=== PATIENT | female | born 1995 | race Caucasian/White ===

== ENCOUNTER 2016-11-02 16:24 | Emergency (ER) | payer BC ==
[2016-11-02 16:35] VITALS: BP 100/64
--- NOTE | 2016-11-02 16:54 | UC ---
Skin Complaint HPI - HPI Summary HPI Summary: pt presents with request for medication refill. Pt has history of dermatitis that "flares up every once in a while". Pt reports that she had a "flare up" a few days ago and took three days worth of oral doxycycline and skin complaint resolved. Pt requested medication refill from PCP and was told that they would not refill it because it has been 6 months since last visit. - History of Current Complaint Chief Complaint: UCMedRefill Time Seen by Provider: 11/02/16 16:37 Stated Complaint: MEDICATION REFILL Hx Obtained From: Patient Hx Last Menstrual Period: 10/14/16 ?: No Onset/Duration: Sudden Onset, Lasting Days, Resolved Skin Exposure Onset/Duration: Days Ago Timing: Constant Onset Severity: Mild Current Severity: None Location: Face Character: Redness Alleviating: Other - prescription antibiotic Associated Signs & Symptoms: Positive: Rash - Allergy/Home Medications Allergies/Adverse Reactions: Allergies Allergy/AdvReac Type Severity Reaction Status Date / Time Molds & Smuts Allergy Severe See Comment Verified 11/02/16 16:34 Ciprofloxacin [From Cipro] Allergy Intermediate Hives Verified 11/02/16 16:34 Sulfa Drugs Allergy Intermediate Unknown Uncoded 11/02/16 16:34 Reaction Details vicryl sutures Allergy See Comment Uncoded 11/02/16 16:34 Review of Systems Constitutional: Negative Skin: Rash - resolved Eyes: Negative ENT: Negative Respiratory: Negative Cardiovascular: Negative Gastrointestinal: Negative Genitourinary: Negative Motor: Negative Neurovascular: Negative Musculoskeletal: Negative Neurological: Negative Psychological: Negative All Other Systems Reviewed And Are Negative: Yes PMH/Surg Hx/FS Hx/Imm Hx Previously Healthy: Yes Endocrine History Of: Denies: Diabetes, Thyroid Disease, Hyperthyroidism, Hypothyroidism, Dyslipidemia Cardiovascular History Of: Denies: Cardiac Disorders, Hypertension, Pacemaker/ICD, Myocardial Infarction , Congestive Heart Failure, Atrial Fibrillation, Deep Vein Thrombosis, Bleeding Disorders Respiratory History Of: Reports: Asthma Denies: COPD, Bronchitis, Pneumonia, Pulmonary Embolism GI/ History Of: Denies: Gastroesophageal Reflux, Ulcer, Gastrointestinal Bleed, Gall Bladder Disease, Kidney Stones, Diverticulitis, Renal Disease, Urosepsis Neurological History Of: Denies: TIA, CVA, Dementia, Seizures, Migraine Psychological History Of: Reports: Anxiety, Depression Denies: Bipolar Disorder, Schizophrenia Cancer History Of: Denies: Lung Cancer, Colorectal Cancer, Breast Cancer, Prostate Cancer, Cervical Cancer Other History Of: Negative For: HIV, Hepatitis B, Hepatitis C, Anticoagulant Therapy - Surgical History Surgical History: Yes Surgery Procedure, Year, and Place: Basal cell carcinoma removal thoracic spine 2013 - Family History Known Family History: Positive: None, Hypertension, Other - father - [place], grandmother- TIA Negative: Cardiac Disease - Social History Occupation: Student Alcohol Use: Weekly Alcohol Amount: once weekly Substance Use Type: None Smoking Status (MU): Never Smoked Tobacco Have You Smoked in the Last Year: No - Immunization History Most Recent Influenza Vaccination: 2014 Most Recent Tetanus Shot: UTD Physical Exam Triage Information Reviewed: Yes Appearance: Well-Appearing Vital Signs: Initial Vital Signs Temp 98.8 F 11/02/16 16:29 Pulse 65 11/02/16 16:29 Resp 16 11/02/16 16:29 BP 100/64 11/02/16 16:29 Pulse Ox 100 11/02/16 16:29 Vital Signs Reviewed: Yes Eye Exam: Normal ENT Exam: Normal Neck exam: Normal Respiratory Exam: Normal Cardiovascular Exam: Normal Musculoskeletal Exam: Normal Neurological Exam: Normal Psychological Exam: Normal Skin Exam: Normal, Other - no rash or skin disorder, irritation appreciated. Course/Dx - Course Course Of Treatment: I advised the pt that in the absence of an acute exacerbation of her chronic skin disorder, that it would be appropriate for her to return to her PCP for the maintenance antibiotic medication. - Differential Diagnoses - Skin Complaint Differential Diagnoses: Cellulitis, Other - dermatitis - Diagnoses Provider Diagnoses: normal exam - Physician Notification/Consults Discussed Patient Care With: I discussed this with Dr. Alvarez and he agreed with my plan of care. Discharge - Discharge Plan Condition: Stable Disposition: HOME Patient Education Materials: Normal Exam (ED) Ref[place]: [facility] [place]] No Primary Care Phys,NOPCP [Primary Care Provider] - Additional Instructions: Your exam has revealed that your skin complaint has resolved with your prior treatment. It is necessary that you keep your appointment with the PCP that provides you with your regular medications. If you skin complaints returns please return to clinic or go to your PCP for treatment.
== END 2016-11-02 17:05 | disposition home or self-care (01) ==
LOC: UCEAST 16:24
DX: Z00.00 Encounter for general adult medical examination without abnormal findings (principal); Z88.1 Allergy status to other antibiotic agents; Z88.2 Allergy status to sulfonamides
CPT/HCPCS: 99211; G0463

== ENCOUNTER 2016-11-18 19:25 | Emergency (ER) | payer BC ==
[2016-11-18 19:43] VITALS: BP 107/55
--- NOTE | 2016-11-18 20:30 | UC ---
Complaint Female HPI - HPI Summary HPI Summary: ONE WEEK OF URINARY URGENCY AND FREQUENCY, NO BACK PAIN. SOME OCCASIONAL SUPRAPUBIC TENDERNESS. NO FEVER. - History Of Current Complaint Chief Complaint: UCGU Stated Complaint: POSS UTI Time Seen by Provider: 11/18/16 19:38 Hx Obtained From: Patient Hx Last Menstrual Period: 11/12/16 Onset/Duration: Gradual Onset, Lasting Days, Still Present Timing: Intermittent, Lasting Days Severity Initially: Moderate Severity Currently: Moderate Character: Dull Aggravating Factor(s): Coughing, Urination Associated Signs And Symptoms: Negative: Fever, Back Pain, Vaginal Bleeding/ Discharge, Vaginal Discharge, Nausea, Vomiting(# Of Episodes =), Genital Swelling, Genital Blisters, Retained Foregin Body (Specify) - Risk Factors Ectopic Risk Factor: Negative Ovarian Torsion Risk Factor: Negative - Allergies/Home Medications Allergies/Adverse Reactions: Allergies Allergy/AdvReac Type Severity Reaction Status Date / Time Molds & Smuts Allergy Severe See Comment Verified 11/18/16 19:43 Ciprofloxacin [From Cipro] Allergy Intermediate Hives Verified 11/18/16 19:43 Sulfa Drugs Allergy Intermediate Unknown Uncoded 11/18/16 19:43 Reaction Details vicryl sutures Allergy See Comment Uncoded 11/18/16 19:43 PMH/Surg Hx/FS Hx/Imm Hx Previously Healthy: Yes Endocrine History Of: Denies: Diabetes, Thyroid Disease, Hyperthyroidism, Hypothyroidism, Dyslipidemia Cardiovascular History Of: Denies: Cardiac Disorders, Hypertension, Pacemaker/ICD, Myocardial Infarction , Congestive Heart Failure, Atrial Fibrillation, Deep Vein Thrombosis, Bleeding Disorders Respiratory History Of: Reports: Asthma Denies: COPD, Bronchitis, Pneumonia, Pulmonary Embolism GI/ History Of: Denies: Gastroesophageal Reflux, Ulcer, Gastrointestinal Bleed, Gall Bladder Disease, Kidney Stones, Diverticulitis, Renal Disease, Urosepsis Neurological History Of: Denies: TIA, CVA, Dementia, Seizures, Migraine Psychological History Of: Reports: Anxiety, Depression Denies: Bipolar Disorder, Schizophrenia Cancer History Of: Denies: Lung Cancer, Colorectal Cancer, Breast Cancer, Prostate Cancer, Cervical Cancer Other History Of: Negative For: HIV, Hepatitis B, Hepatitis C, Anticoagulant Therapy - Surgical History Surgical History: Yes Surgery Procedure, Year, and Place: Basal cell carcinoma removal thoracic spine 2014 - Family History Known Family History: Positive: None, Hypertension, Respiratory Disease - SISTER HAS KIDNEY REFLUX, Other - father - [place], grandmother- TIA Negative: Cardiac Disease - Social History Occupation: Student Lives: With Family Alcohol Use: Weekly Alcohol Amount: once weekly Substance Use Type: None Smoking Status (MU): Never Smoked Tobacco Have You Smoked in the Last Year: No - Immunization History Most Recent Influenza Vaccination: 2014 Most Recent Tetanus Shot: UTD Review of Systems Constitutional: Negative Skin: Negative Eyes: Negative ENT: Negative Respiratory: Negative Cardiovascular: Negative Gastrointestinal: Negative Genitourinary: Dysuria, Frequency, Urgency Motor: Negative Neurovascular: Negative Musculoskeletal: Negative Neurological: Negative Psychological: Negative All Other Systems Reviewed And Are Negative: Yes Physical Exam Triage Information Reviewed: Yes Appearance: Well-Appearing, No Pain Distress, Well-Nourished Vital Signs: Initial Vital Signs Temp 99.2 F 11/18/16 19:37 Pulse 73 11/18/16 19:37 Resp 20 11/18/16 19:37 BP 107/55 11/18/16 19:37 Pulse Ox 100 11/18/16 19:37 Vital Signs Reviewed: Yes Eye Exam: Normal ENT Exam: Normal ENT: Positive: Normal ENT inspection, Hearing grossly normal, Pharynx normal, TMs normal Dental Exam: Normal Neck exam: Normal Neck: Positive: Supple, Nontender, No Lymphadenopathy Respiratory Exam: Normal Respiratory: Positive: Chest non-tender, Lungs clear, Normal breath sounds, No respiratory distress, No accessory muscle use Cardiovascular Exam: Normal Cardiovascular: Positive: RRR, No Murmur, Pulses Normal Abdominal Exam: Normal Abdomen Description: Positive: Nontender, No Organomegaly Musculoskeletal Exam: Normal Musculoskeletal: Positive: Strength Intact, ROM Intact Neurological Exam: Normal Psychological Exam: Normal Complaint Female Dx - Differential Dx/Diagnosis Differential Diagnosis/HQI/PQRI: Cervicitis, Ovarian Cyst, Urinary Tract Infection Provider Diagnoses: URINARY TRACT INFECTION Discharge - Discharge Plan Condition: Stable Disposition: HOME Prescriptions: Cephalexin CAP* [Keflex CAP*] 500 mg PO QID #20 cap Phenazopyridine TAB* [Pyridium 100 mg TAB*] 100 mg PO TID #15 tab Patient Education Materials: Urinary Tract Infection in Women (ED) Referrals: [facility] [Outside] [facility] [Outside] No Primary Care Phys,NOPCP [Primary Care Provider] -
== END 2016-11-18 20:30 | disposition home or self-care (01) ==
LOC: UCEAST 19:25
DX: N39.0 Urinary tract infection, site not specified (principal); Z88.1 Allergy status to other antibiotic agents; Z88.2 Allergy status to sulfonamides
CPT/HCPCS: 87086; 99212; G0463

== ENCOUNTER 2017-01-06 21:21 | Emergency (ER) | payer BC ==
[2017-01-06 21:39] VITALS: BP 116/78
--- NOTE | 2017-01-06 21:52 | UC ---
Throat Pain/Nasal Orestes HPI - HPI Summary HPI Summary: complaint of fever for the last three days 100-101 muscle achiness, slight sore throat intermittent headache throughout the day nausea and vomiting -vomited 1 x today denies diarrhea rash under her eyes appeared 2 hours a go took some advil with some relief denies dysura denies tick bites denies nasal congestion and cough - History of Current Complaint Chief Complaint: UCGeneralIllness Stated Complaint: FEVER,HEADACHE,RASH,ACHES Hx Obtained From: Patient Hx Last Menstrual Period: 12/25/16 - Allergies/Home Medications Allergies/Adverse Reactions: Allergies Allergy/AdvReac Type Severity Reaction Status Date / Time Molds & Smuts Allergy Severe See Comment Verified 01/06/17 21:39 Ciprofloxacin [From Cipro] Allergy Intermediate Hives Verified 01/06/17 21:39 Sulfa Drugs Allergy Intermediate Unknown Uncoded 01/06/17 21:39 Reaction Details vicryl sutures Allergy See Comment Uncoded 01/06/17 21:39 Home Medications: Home Medications Minocycline HCl [Minocin] 50 mg PO 01/06/17 [History] Sertraline* [Zoloft*] 50 mg PO BEDTIME 01/06/17 [History Confirmed 01/06/17] PMH/Surg Hx/FS Hx/Imm Hx Previously Healthy: Yes Endocrine History Of: Denies: Diabetes, Thyroid Disease, Hyperthyroidism, Hypothyroidism, Dyslipidemia Cardiovascular History Of: Denies: Cardiac Disorders, Hypertension, Pacemaker/ICD, Myocardial Infarction , Congestive Heart Failure, Atrial Fibrillation, Deep Vein Thrombosis, Bleeding Disorders Respiratory History Of: Reports: Asthma Denies: COPD, Bronchitis, Pneumonia, Pulmonary Embolism GI/ History Of: Denies: Gastroesophageal Reflux, Ulcer, Gastrointestinal Bleed, Gall Bladder Disease, Kidney Stones, Diverticulitis, Renal Disease, Urosepsis Neurological History Of: Denies: TIA, CVA, Dementia, Seizures, Migraine Psychological History Of: Reports: Anxiety, Depression Denies: Bipolar Disorder, Schizophrenia Cancer History Of: Denies: Lung Cancer, Colorectal Cancer, Breast Cancer, Prostate Cancer, Cervical Cancer Other History Of: Negative For: HIV, Hepatitis B, Hepatitis C, Anticoagulant Therapy - Surgical History Surgical History: Yes Surgery Procedure, Year, and Place: Basal cell carcinoma removal thoracic spine 2014 - Family History Known Family History: Positive: None, Hypertension, Respiratory Disease - SISTER HAS KIDNEY REFLUX, Other - father - [place], grandmother- TIA Negative: Cardiac Disease - Social History Occupation: Student Alcohol Use: Weekly Alcohol Amount: once weekly Substance Use Type: None Smoking Status (MU): Never Smoked Tobacco Have You Smoked in the Last Year: No - Immunization History Most Recent Influenza Vaccination: 2014 Most Recent Tetanus Shot: UTD Review of Systems Constitutional: Fever Skin: Negative Eyes: Negative ENT: Negative Respiratory: Negative Cardiovascular: Negative Gastrointestinal: Negative Genitourinary: Negative Motor: Negative Neurovascular: Negative Musculoskeletal: Negative Neurological: Negative Psychological: Negative All Other Systems Reviewed And Are Negative: Yes Physical Exam Triage Information Reviewed: Yes Appearance: No Pain Distress, Well-Nourished, Ill-Appearing Vital Signs: Initial Vital Signs Temp 99.9 F 01/06/17 21:33 Pulse 95 01/06/17 21:33 Resp 18 01/06/17 21:33 BP 116/78 01/06/17 21:33 Pulse Ox 99 01/06/17 21:33 Vital Signs Reviewed: Yes Eyes: Positive: Conjunctiva Clear ENT: Positive: Pharyngeal erythema, TMs normal, Tonsillar swelling, Tonsillar exudate Dental: Positive: Cervical Lymphadenopathy Neck: Positive: Supple Respiratory: Positive: Lungs clear, Normal breath sounds, No respiratory distress, No accessory muscle use Cardiovascular: Positive: RRR, No Murmur, Pulses Normal Abdomen Description: Positive: Nontender, Soft. Negative: CVA Tenderness (R), CVA Tenderness (L), Distended, Guarding Bowel Sounds: Positive: Present Musculoskeletal Exam: Normal Neurological: Positive: Alert, Other: - negatieve Kerniogs sign, negative Brudinski sign Psychological Exam: Normal Skin: Positive: Other - small petechial underneath her eyes no other rash below her neck Throat Pain/Nasal Course/Dx - Differential Dx/Diagnosis Differential Diagnosis/HQI/PQRI: Pharyngitis, Sinusitis, Tonsillitis Provider Diagnoses: febrile illness,pharyngitis Discharge - Discharge Plan Condition: Stable Disposition: HOME Patient Education Materials: Fever in Adults (ED) Referrals: [facility] [Primary Care Provider] - Additional Instructions: Increase fluids and rest Take acetaminophen or ibuprofen for fever or pain Please review your discharge instructions. Please follow up tomorrow at the [facility] If your symptoms do not improve please call your primary care provider or return to urgent care.
== END 2017-01-06 22:32 | disposition home or self-care (01) ==
LOC: UCEAST 21:21
DX: R50.9 Fever, unspecified (principal); J02.9 Acute pharyngitis, unspecified; Z88.3 Allergy status to other anti-infective agents; Z88.2 Allergy status to sulfonamides; J45.909 Unspecified asthma, uncomplicated; F41.9 Anxiety disorder, unspecified; F32.9 Major depressive disorder, single episode, unspecified
CPT/HCPCS: 87651; 99211; G0463